=== PATIENT | male | born 1950 | race Caucasian/White ===

== ENCOUNTER → 2020-05-04 | Outpatient (CLI) | payer MEDICARE, OTHER ==
[~2020-05-04] MED LIST: ALBU90OI6 INH; ASPI325 PO; ASPI81CH PO; ATOR10 PO; ATOR80 PO; AZIT250 PO; CHLCLI PO; CLOP75 PO; CODGUAEL PO; FINA5 PO; IBUP600 PO; LISI5 PO; METO25ER PO; NITR.4SL SL
[2020-05-04 12:48] LABS: Source, Urine Clean Catch
[2020-05-04 18:45] LABS: Appearance, Urine Hazy (Clear); Bilirubin, Urine Neg (Neg); Blood, Urine 4+ (Neg); Color, Urine Yellow (P-Yellow); Glucose Qualitative, Urine Neg (Neg); Ketones, Urine Neg (Neg); Leukocyte Esterase, Urine 1+ (Neg); Nitrite, Urine Neg (Neg); Protein, Urine 1+ (Neg); Specific Gravity, Urine 1.015 (1.003-1.022); Urobilinogen, Urine NORM (Normal)
[2020-05-04 19:05] LABS: Bacteria Rare /hpf; Squamous Epithelial Cells Not Seen /hpf (Few)
== END | disposition home or self-care (01) ==
LOC: LAB 11:50 → LAB SHORT 11:50 → LAB FUT 05-03 09:20 → EDSTATUS 05-03 09:20
PROVIDERS: Urology
DX: D49.4 Neoplasm of unspecified behavior of bladder (principal); R31.0 Gross hematuria
CPT/HCPCS: 81001; 87086

== ENCOUNTER → 2020-08-21 | Outpatient (CLI) | payer MEDICARE, OTHER ==
[~2020-08-21] MED LIST changes: +Lisinopril2.5 MG PO; +METO50 PO; +Plavix75 MG PO
[2020-08-23 16:06] LABS: CORONAVIRUS (COVID19) CSH-NRL Negative (Negative)
== END | disposition home or self-care (01) ==
LOC: LAB SHORT 08:00 → LAB 08:00
PROVIDERS: Nurse Practitioner Family
DX: Z01.812 Encounter for preprocedural laboratory examination (principal); Z20.822 Contact with and (suspected) exposure to COVID-19
CPT/HCPCS: U0003

== ENCOUNTER → 2020-08-30 | Outpatient (CLI) | payer MEDICARE, OTHER ==
[2020-08-31 16:27] LABS: CORONAVIRUS (COVID19) CSH-NRL Negative (Negative)
== END ==
LOC: LAB SHORT 09:56 → PLD 09:56
PROVIDERS: Nurse Practitioner Family
DX: Z01.812 Encounter for preprocedural laboratory examination (principal); Z01.89 Encounter for other specified special examinations; Z20.822 Contact with and (suspected) exposure to COVID-19
CPT/HCPCS: U0003

== ENCOUNTER 2020-09-05 09:31 | Day surgery (SDC) | payer MEDICARE, OTHER ==
[~2020-09-05] VITALS: Ht 172.7 cm; Wt 85.1 kg
--- NOTE | 2020-09-05 11:55 | NUR ---
09/05/20 1155 Anastasiya Oneill PT UPDATED ON DELAY FOR SECOND TIME. PT CALM AND KIND, EXPRESSING UNDERSTANDING. RESTING COMFORTABLY IN BED, PLAYING ON PHONE. CALL LIGHT WITHIN REACH. DENIES NEEDS AT THIS TIME.
== END 2020-09-05 14:06 | disposition home or self-care (01) ==
LOC: ORSCSDS 09:31
PROVIDERS: Internal Medicine Gastroenterology
PROC: 0DBM8ZX Excision of Descending Colon, Via Natural or Artificial Opening Endoscopic, Diagnostic (ICD-10-PCS; principal; 2020-09-05 11:00)
PROC: 0DBE8ZX Excision of Large Intestine, Via Natural or Artificial Opening Endoscopic, Diagnostic (ICD-10-PCS; principal; 2020-09-05 11:00)
PROC: 0DB98ZX Excision of Duodenum, Via Natural or Artificial Opening Endoscopic, Diagnostic (ICD-10-PCS; principal; 2020-09-05 11:00)
DX: R19.7 Diarrhea, unspecified (principal); Z86.010 Personal history of colon polyps; D12.4 Benign neoplasm of descending colon; K52.832 Lymphocytic colitis; K64.8 Other hemorrhoids; Z87.891 Personal history of nicotine dependence; I10 Essential (primary) hypertension; N18.9 Chronic kidney disease, unspecified; I25.10 Atherosclerotic heart disease of native coronary artery without angina pectoris; Z79.899 Other long term (current) drug therapy
CPT/HCPCS: 88305; J2704; J7120

== ENCOUNTER 2020-09-08 13:39 | Emergency (ER) | payer MEDICARE, OTHER ==
[~2020-09-08] VITALS: Ht 172.7 cm; Wt 83.9 kg
[2020-09-08 14:09] LABS: BASOPHILS ABSOLUTE AUTO 0.04 K/mm3 (0.00-0.23); BASOPHILS PERCENT AUTO 1 % (0-2); EOSINOPHILS ABSOLUTE AUTO 0.18 K/mm3 (0.00-0.68); EOSINOPHILS PERCENT AUTO 2 % (0-6); Hematocrit 45.8 % (37.0-53.0); Hemoglobin 15.9 g/dL (13.5-17.5); IMMATURE GRAN ABSOLUTE AUTO 0.07 K/mm3 (0.00-0.10); IMMATURE GRAN PERCENT AUTO 1 % (0-1); LYMPHOCYTES ABSOLUTE AUTO 1.14 K/mm3 (0.84-5.20); LYMPHOCYTES PERCENT AUTO 15 % (21-46); MONOCYTES ABSOLUTE AUTO 0.68 K/mm3 (0.16-1.47); MONOCYTES PERCENT AUTO 9 % (4-13); Mean Corpuscular HGB 33.2 pg (26.0-34.0); Mean Corpuscular HGB Conc 34.7 g/dL (31.5-36.5); Mean Corpuscular Volume 96 fL (80-100); Mean Platelet Volume 9.8 fL (9.1-12.4); NEUTROPHILS PERCENT AUTO 72 % (41-73); Platelet Count 148 K/mm3 (150-400); RDW Coefficient Variation 12.4 % (11.7-14.2); RDW Standard Deviation 43.9 fL (35.1-46.3); Red Blood Cell Count 4.79 M/mm3 (4.30-5.90); White Blood Cell Count 7.51 K/mm3 (4.00-11.30)
[2020-09-08 14:25] LABS: International Normalized Ratio 0.96; Prothrombin Time Results 10.3 Sec (9.7-11.5)
[2020-09-08 14:27] LABS: Source, Urine Clean Catch
[2020-09-08 14:27] LABS: Alanine Aminotransfer (ALT/SGP 43 U/L (12-78); Albumin, Blood 3.6 g/dL (3.4-5.0); Albumin/Globulin Ratio 1.1 (0.8-1.8); Alk Phos 87 U/L (50-136); Anion Gap 7 mmol/L (6-16); Aspartate Aminotrans (AST/SGOT 24 U/L (12-37); Bilirubin, Total 0.6 mg/dL (0.1-1.0); Blood Urea Nitrogen 10 mg/dL (8-24); Bun/Creatinine Ratio 9.6 (12.0-20.0); CO2, Blood 23 mmol/L (21-32); Calcium, Blood 8.9 mg/dL (8.5-10.1); Chloride, Blood 111 mmol/L (98-108); Creatinine, Blood 1.04 mg/dL (0.60-1.20); Globulin, Blood 3.4 g/dL (2.2-4.0); Glomerular Filtration Rate >60 (60-); Glucose, Blood 119 mg/dL (70-99); Potassium, Blood 3.9 mmol/L (3.5-5.5); Sodium, Blood 141 mmol/L (136-145)
[2020-09-08 14:35] LABS: Appearance, Urine Bloody (Clear); Bilirubin, Urine Neg (Neg); Blood, Urine 4+ (Neg); Color, Urine Red (P-Yellow); Glucose Qualitative, Urine Neg (Neg); Ketones, Urine 1+ (Neg); Leukocyte Esterase, Urine Neg (Neg); Nitrite, Urine Neg (Neg); Protein, Urine 4+ (Neg); Specific Gravity, Urine 1.015 (1.003-1.022); Urobilinogen, Urine NORM (Normal)
[2020-09-08 14:58] LABS: Red Blood Cells, Urine TNTC /hpf (0-2); White Blood Cells, Urine 0-2 /hpf (0-5)
[2020-09-08 15:00] LABS: Bacteria Few /hpf; Squamous Epithelial Cells Not Seen /hpf (Few)
== END 2020-09-08 15:12 | disposition home or self-care (01) ==
LOC: ER 13:39
PROVIDERS: Physician Assistant
DX: R31.9 Hematuria, unspecified (principal); I10 Essential (primary) hypertension; E78.5 Hyperlipidemia, unspecified; I25.2 Old myocardial infarction; Z87.891 Personal history of nicotine dependence; Z88.8 Allergy status to other drugs, medicaments and biological substances; Z79.899 Other long term (current) drug therapy; Z79.02 Long term (current) use of antithrombotics/antiplatelets; N39.0 Urinary tract infection, site not specified
CPT/HCPCS: 36415; 80053; 81001; 81015; 85025; 85610; 87086; 99283

== ENCOUNTER 2021-01-01 10:29 | Emergency (ER) | payer MEDICARE, OTHER ==
[~2021-01-01] VITALS: Ht 172.7 cm; Wt 70.8 kg
[2021-01-01 11:22] LABS: Hematocrit 25.7 % (37.0-53.0); Hemoglobin 8.9 g/dL (13.5-17.5); Mean Corpuscular HGB 34.1 pg (26.0-34.0); Mean Corpuscular HGB Conc 34.6 g/dL (31.5-36.5); Mean Corpuscular Volume 99 fL (80-100); Mean Platelet Volume 9.5 fL (9.1-12.4); Platelet Count 133 K/mm3 (150-400); RDW Coefficient Variation 15.9 % (11.7-14.2); RDW Standard Deviation 56.3 fL (35.1-46.3); Red Blood Cell Count 2.61 M/mm3 (4.30-5.90); White Blood Cell Count 7.67 K/mm3 (4.00-11.30)
[2021-01-01 11:34] LABS: Albumin, Blood 3.7 g/dL (3.4-5.0); Albumin/Globulin Ratio 1.4 (0.8-1.8); Bilirubin, Total 1.2 mg/dL (0.1-1.0); Bun/Creatinine Ratio 18.5 (12.0-20.0); Calcium, Blood 8.9 mg/dL (8.5-10.1); Creatinine, Blood 1.78 mg/dL (0.60-1.20); Globulin, Blood 2.7 g/dL (2.2-4.0); Potassium, Blood 4.8 mmol/L (3.5-5.5); Total Protein, Blood 6.4 g/dL (6.4-8.2)
[2021-01-01 11:54] LABS: BAND PERCENT MAN 1 % (0-8); BASOPHILS PERCENT MAN 0 % (0-2); EOSINOPHILS PERCENT MAN 0 % (0-6); LYMPHOCYTES ABSOLUTE MAN 0.69 K/mm3 (0.84-5.20); LYMPHOCYTES PERCENT MAN 9 % (21-46); METAMYELOCYTE ABSOLUTE MAN 0.07 K/mm3 (0.00-0.00); METAMYELOCYTE PERCENT MAN 1 % (0-0); MONOCYTES PERCENT MAN 0 % (4-13); MYELOCYTE ABSOLUTE MAN 0.07 K/mm3 (0.00-0.00); MYELOCYTE PERCENT MAN 1 % (0-0); NEUTROPHILS ABSOLUTE MAN 6.82 K/mm3 (1.96-9.15); SEG NEUTROPHILS PERCENT MAN 88 % (41-73); TOTAL CELLS COUNTED 100
== END 2021-01-01 12:45 | disposition home or self-care (01) ==
LOC: ER 10:29
PROVIDERS: Emergency Medicine
DX: D64.9 Anemia, unspecified (principal); E87.1 Hypo-osmolality and hyponatremia; I10 Essential (primary) hypertension; E78.5 Hyperlipidemia, unspecified; Z88.8 Allergy status to other drugs, medicaments and biological substances; Z79.02 Long term (current) use of antithrombotics/antiplatelets
CPT/HCPCS: 36415; 71046; 80053; 85025; 93005; 93010; 99284-25

== ENCOUNTER 2021-01-15 11:04 | Emergency (ER) | payer MEDICARE, OTHER ==
[~2021-01-15] VITALS: Ht 172.7 cm; Wt 69.0 kg
[2021-01-15] MEDS ORDERED: METO10 PO (11:16)
[2021-01-15] MEDS ORDERED: Lisinopril2.5 MG PO (11:16)
[2021-01-15 11:28] LABS: BASOPHILS ABSOLUTE AUTO 0.04 K/mm3 (0.00-0.23); BASOPHILS PERCENT AUTO 0 % (0-2); EOSINOPHILS PERCENT AUTO 0 % (0-6); Hematocrit 26.7 % (37.0-53.0); Hemoglobin 8.9 g/dL (13.5-17.5); IMMATURE GRAN ABSOLUTE AUTO 0.63 K/mm3 (0.00-0.10); IMMATURE GRAN PERCENT AUTO 5 % (0-1); LYMPHOCYTES ABSOLUTE AUTO 0.76 K/mm3 (0.84-5.20); LYMPHOCYTES PERCENT AUTO 6 % (21-46); MONOCYTES ABSOLUTE AUTO 0.95 K/mm3 (0.16-1.47); MONOCYTES PERCENT AUTO 8 % (4-13); Mean Corpuscular HGB 33.7 pg (26.0-34.0); Mean Corpuscular HGB Conc 33.3 g/dL (31.5-36.5); Mean Corpuscular Volume 101 fL (80-100); Mean Platelet Volume 9.6 fL (9.1-12.4); NEUTROPHILS ABSOLUTE AUTO 9.62 K/mm3 (1.96-9.15); NEUTROPHILS PERCENT AUTO 80 % (41-73); Platelet Count 269 K/mm3 (150-400); RDW Coefficient Variation 17.9 % (11.7-14.2); RDW Standard Deviation 65.1 fL (35.1-46.3); Red Blood Cell Count 2.64 M/mm3 (4.30-5.90)
[2021-01-15 12:09] LABS: Albumin, Blood 3.3 g/dL (3.4-5.0); Bilirubin, Total 0.7 mg/dL (0.1-1.0); Bun/Creatinine Ratio 11.3 (12.0-20.0); Calcium, Blood 9.2 mg/dL (8.5-10.1); Creatinine, Blood 2.39 mg/dL (0.60-1.20); Globulin, Blood 3.4 g/dL (2.2-4.0); Potassium, Blood 4.7 mmol/L (3.5-5.5); Total Protein, Blood 6.7 g/dL (6.4-8.2)
[2021-01-15] MEDS ORDERED: DOC250 PO (16:08)
[2021-01-15] MEDS ORDERED: MIRALAX17 GM PO (16:08)
== END 2021-01-15 16:35 | disposition home or self-care (01) ==
LOC: ER 11:04
PROVIDERS: Emergency Medicine
DX: K59.00 Constipation, unspecified (principal); Z88.8 Allergy status to other drugs, medicaments and biological substances; I10 Essential (primary) hypertension; E78.5 Hyperlipidemia, unspecified; I25.10 Atherosclerotic heart disease of native coronary artery without angina pectoris; K58.9 Irritable bowel syndrome, unspecified; R63.4 Abnormal weight loss; Z68.23 Body mass index [BMI] 23.0-23.9, adult; Z85.51 Personal history of malignant neoplasm of bladder; Z79.02 Long term (current) use of antithrombotics/antiplatelets; Z79.899 Other long term (current) drug therapy
CPT/HCPCS: 80053; 84484; 85025; 93005; 93010; 99285-25; A9270

== ENCOUNTER 2021-12-24 06:35 | Day surgery (SDC) | payer MEDICARE, OTHER ==
[~2021-12-24] VITALS: Ht 172.7 cm; Wt 88.0 kg
[~2021-12-24 06:35] MED LIST changes: +DOC250 PO; +METO10 PO; +MIRALAX17 GM PO
--- NOTE | 2021-12-24 10:17 | NUR ---
PT RETURNED TO RECOVERY ROOM IN [facility]. RIGHT RADIAL TR BAND SITE SOFT NON-TENDER WITH NO HEMATOMA, NO PULSATILE BLEEDING WITH WRIST BOARD IN PLACE. PT DENIES CHEST PAIN. PT DRINKING PEPSI AND CALL LIGHT IN REACH.
--- NOTE | 2021-12-24 10:50 | NUR ---
FULL REPORT PROVIDED RONDA CONNOLLY TO ASSUME CARE OF PT.
--- NOTE | 2021-12-24 12:33 | NUR ---
PT UP TO BATHROOM PER SELF, R RADIAL SITE STABLE. PT GETTING SELF DRESSED AT THIS TIME.
--- NOTE | 2021-12-24 12:48 | NUR ---
DISCHARGE REVIEWED WITH PT, VERBALIZES UNDERSTANDING OF INSTRUCTIONS. TR BAND REMOVED AND CLOTH DOT PLACED AT R RADIAL SITE. ARM BOARD ON AND PT INSTRUCTED TO LEAVE IN PLACE FOR 2 DAYS. SALINE LOCK REMOVED WITH CATHETER INTACT. PT TO PRIVATE VEHICLE PER W/C WITH ONE STAFF.
== END 2021-12-24 12:45 | disposition home or self-care (01) ==
LOC: MHTC 06:35
DX: I25.10 Atherosclerotic heart disease of native coronary artery without angina pectoris (principal); I25.2 Old myocardial infarction; I49.3 Ventricular premature depolarization; E78.5 Hyperlipidemia, unspecified; I12.9 Hypertensive chronic kidney disease with stage 1 through stage 4 chronic kidney disease, or unspecified chronic kidney disease; N18.9 Chronic kidney disease, unspecified; J44.9 Chronic obstructive pulmonary disease, unspecified; Z87.891 Personal history of nicotine dependence; Z85.51 Personal history of malignant neoplasm of bladder; Z95.5 Presence of coronary angioplasty implant and graft; Z88.8 Allergy status to other drugs, medicaments and biological substances
CPT/HCPCS: 76937; 93458; 99152; 99153; C1769; C1887; C1894; J1644; J2250; J3010; J7030; J7040; Q9967

== ENCOUNTER → 2022-06-05 | Outpatient (CLI) | payer MEDICARE, OTHER | END | disposition home or self-care (01) | LOC: LAB 13:25 → LAB SHORT 13:25 | DX: R31.0 Gross hematuria (principal) | CPT/HCPCS: 87086 ==

== ENCOUNTER → 2023-10-21 | Outpatient (CLI) | payer MEDICARE, OTHER | END | disposition home or self-care (01) | LOC: LAB SHORT 14:46 → LAB 14:46 | DX: D11.7 Benign neoplasm of other major salivary glands (principal) ==

== ENCOUNTER 2023-12-03 10:59 | Day surgery (SDC) | payer MEDICARE, OTHER ==
[~2023-12-03] VITALS: Ht 172.7 cm; Wt 83.1 kg
[~2023-12-03 10:59] MED LIST changes: +Lactated Ringer's 1,000 ML IV ONE
[2023-12-03] MEDS ORDERED: MULVITA PO (12:20)
[2023-12-03] MEDS ORDERED: TAMS.4ER PO (12:20)
[2023-12-03] MEDS ORDERED: DERMACINRX FOL1 EAC2 PO (12:21)
[2023-12-03] MEDS ORDERED: ASPIR 8181 M1 PO (12:22)
[2023-12-03] MEDS ORDERED: Lactated Ringer's 1,000 ML IV ONE ×2 (12:36→14:49)
[2023-12-03] MEDS ORDERED: propofoL 20 ML IV ONE (12:49)
[2023-12-03] MEDS ORDERED: FentaNYL Citrate 50 MCG/ML 2 ML Injection ONE ×3 (12:49→14:05)
[2023-12-03] MEDS ORDERED: Midazolam HCl 1MG / ML 2ML Vial ONE (12:50)
[2023-12-03] MEDS ORDERED: Rocuronium Bromide 10 MG/ML 5ML Injection IV ONE (12:52)
[2023-12-03] MEDS ORDERED: Sugammadex Sodium 200 MG/2ML SDV (100 MG/ML) ONE (13:22)
[2023-12-03] MEDS ORDERED: Dexamethasone Sod Phos 10 MG/ML 1ML VIAL ONE (13:22)
[2023-12-03] MEDS ORDERED: Ondansetron HCl 2 MG / ML 2ML Vial ONE (13:22)
[2023-12-03] MEDS ORDERED: propofoL 60 ML IV ONE (13:23)
[2023-12-03] MEDS ORDERED: Glycopyrrolate 0.2 MG/ML 5ML VIAL ONE (13:32)
[2023-12-03] MEDS ORDERED: Sodium Chloride 0.9% Inj 10 ML Vial INJ ONE (13:37)
[2023-12-03] MEDS ORDERED: EPINEPhrine HCl 1 MG/ML 1ML Amp XX ONE (13:37)
--- NOTE | 2023-12-03 13:47 | NUR ---
12/03/23 Maegan Bronson 0.1ML OF EPI DILUTED WITH 20ML OF NORMAL SALINE TO MAKE EPI 1:200,000 FOR INJECTION AT [facility] BY DR MAYORGA.
[2023-12-03] MEDS ORDERED: Ketorolac Tromethamine 30mg Vial ONE (14:30)
[2023-12-03 15:13] VITALS: BP 112/78
--- NOTE | 2023-12-03 16:43 | NUR ---
12/03/23 Jacobo Roberto PT'S HEART RATE WAS NOTED TO BE IRREGULAR IN SDU. PT'S RADIAL PULSE WAS PALPATED MANUALLY, AND THREE LEAD ECG WAS ATTACHED (SEE STRIP). PT DENIED CARDIAC SYMPTOMS--INCLUDING DIZZINESS, CP, NAUSEA, WEAKNESS, SOB, VISUAL DISTURBANCE, AND HEADACHE-- THROUGHOUT STAY IN SDU, AND NONE WERE OBSERVED. DR. VILLALTA WAS CONSULTED AND APPROVED D/C WITHOUT DIZZINESS. PT REPORTED TOLERABLE 2-3/10 NECK PAIN THROUGHOUT STAY IN SDU AND UPON D/C. HE EXPRESSED EAGERNESS TO RETURN HOME.
== END 2023-12-03 16:25 | disposition home or self-care (01) ==
LOC: ORSCSDS 10:59
PROVIDERS: Otolaryngology
PROC: 0CBG0ZX Excision of Right Submaxillary Gland, Open Approach, Diagnostic (ICD-10-PCS; principal; 2023-12-03 12:30)
DX: D11.0 Benign neoplasm of parotid gland (principal); I10 Essential (primary) hypertension; F17.210 Nicotine dependence, cigarettes, uncomplicated; I25.2 Old myocardial infarction; Z79.899 Other long term (current) drug therapy; Z79.82 Long term (current) use of aspirin; Z85.828 Personal history of other malignant neoplasm of skin
CPT/HCPCS: 88307; J0171; J1100; J1885; J2250; J2405; J2704; J3010; J7120

== ENCOUNTER 2024-03-23 09:41 | Day surgery (SDC) | payer MEDICARE, OTHER ==
[~2024-03-23] VITALS: Ht 172.7 cm; Wt 82.3 kg
[~2024-03-23 09:41] MED LIST changes: +ASPIR 8181 M1 PO; +Atropine Sulfate 0.1 MG/ML 10ML SYR ONE; +DERMACINRX FOL1 EAC2 PO; +Glycopyrrolate 0.2 MG/ML 1MLVIAL ONE; +Lidocaine 2% 5 ML SDV ONE; +Lidocaine HCl/Pf 1% 5 ML VIAL ONE; +MULVITA PO; +Methylene Blue 1% 100 MG/10 ML VIAL ONE; +Ondansetron HCl 2 MG / ML 2ML Vial ONE; +TAMS.4ER PO; +ePHEDrine Sulfate 50 MG/ML 1ML Injection ONE; +propofoL 50 ML IV ONE
[2024-03-23] MEDS ORDERED: Lactated Ringer's 1,000 ML IV ONE (11:39)
[2024-03-23 13:22] VITALS: BP 114/76
== END 2024-03-23 13:10 | disposition home or self-care (01) ==
LOC: ORSCSDS 09:41
PROVIDERS: Internal Medicine Gastroenterology
PROC: 0DBM8ZX Excision of Descending Colon, Via Natural or Artificial Opening Endoscopic, Diagnostic (ICD-10-PCS; principal; 2024-03-23 11:15)
DX: R19.4 Change in bowel habit (principal); K52.9 Noninfective gastroenteritis and colitis, unspecified; Z86.0101 Personal history of adenomatous and serrated colon polyps; D12.4 Benign neoplasm of descending colon; K64.4 Residual hemorrhoidal skin tags; K64.8 Other hemorrhoids; Z87.19 Personal history of other diseases of the digestive system; Z87.891 Personal history of nicotine dependence; Z79.02 Long term (current) use of antithrombotics/antiplatelets
CPT/HCPCS: 88305; J0461; J2001; J2003; J2405; J2704; J7120; Q9968

== ENCOUNTER 2024-07-14 06:21 | Day surgery (SDC) | payer OTHER ==
[~2024-07-14] VITALS: Ht 172.7 cm; Wt 83.1 kg
[~2024-07-14 06:21] MED LIST changes: -Atropine Sulfate 0.1 MG/ML 10ML SYR ONE; -Glycopyrrolate 0.2 MG/ML 1MLVIAL ONE; -Lactated Ringer's 1,000 ML IV ONE; -Lidocaine 2% 5 ML SDV ONE; -Lidocaine HCl/Pf 1% 5 ML VIAL ONE; -Methylene Blue 1% 100 MG/10 ML VIAL ONE; -Ondansetron HCl 2 MG / ML 2ML Vial ONE; -ePHEDrine Sulfate 50 MG/ML 1ML Injection ONE; -propofoL 50 ML IV ONE
[2024-07-14] MEDS ORDERED: propofoL 50 ML IV ONE (07:34)
[2024-07-14] MEDS ORDERED: Lactated Ringer's 1,000 ML IV ONE ×2 (07:34→07:54)
[2024-07-14 09:17] VITALS: BP 117/63
== END 2024-07-14 09:04 | disposition home or self-care (01) ==
LOC: ORSCSDS 06:21
PROVIDERS: Internal Medicine Gastroenterology
PROC: 0DBH8ZX Excision of Cecum, Via Natural or Artificial Opening Endoscopic, Diagnostic (ICD-10-PCS; principal; 2024-07-14 08:00)
PROC: 0DBL8ZX Excision of Transverse Colon, Via Natural or Artificial Opening Endoscopic, Diagnostic (ICD-10-PCS; principal; 2024-07-14 08:00)
DX: Z12.11 Encounter for screening for malignant neoplasm of colon (principal); Z86.0101 Personal history of adenomatous and serrated colon polyps; D12.3 Benign neoplasm of transverse colon; D12.0 Benign neoplasm of cecum; K64.4 Residual hemorrhoidal skin tags; Z87.19 Personal history of other diseases of the digestive system; I25.10 Atherosclerotic heart disease of native coronary artery without angina pectoris; J44.9 Chronic obstructive pulmonary disease, unspecified; E78.5 Hyperlipidemia, unspecified; I10 Essential (primary) hypertension; Z79.899 Other long term (current) drug therapy
CPT/HCPCS: 88305; J2704; J7120

== ENCOUNTER → 2025-04-05 | Outpatient (CLI) | payer MEDICARE, OTHER ==
[2025-04-05 09:33] LABS: Source, Urine Clean Catch
[2025-04-05 13:25] LABS: Bilirubin, Urine Neg (Neg); Color, Urine Yellow (P-Yellow); Glucose Qualitative, Urine 2+ (Neg); Ketones, Urine Neg (Neg); Leukocyte Esterase, Urine Neg (Neg); Protein, Urine 1+ (Neg); Specific Gravity, Urine 1.020 (1.003-1.022); Urobilinogen, Urine NORM (Normal)
[2025-04-05 13:37] LABS: Albumin, Blood 3.7 g/dL (3.4-5.0); Anion Gap 9 mmol/L (3-11); Blood Urea Nitrogen 24 mg/dL (8-24); CO2, Blood 27 mmol/L (21-32); Calcium, Blood 9.1 mg/dL (8.5-10.1); Chloride, Blood 105 mmol/L (98-108); Creatinine, Blood 1.37 mg/dL (0.60-1.20); Glucose, Blood 183 mg/dL (70-99); Phosphorus, Blood 2.7 mg/dL (2.5-4.9); Potassium, Blood 4.1 mmol/L (3.5-5.5); Sodium, Blood 137 mmol/L (136-145)
[2025-04-05 14:16] LABS: White Blood Cells, Urine 0-2 /hpf (0-5)
[2025-04-05 15:27] LABS: Creatinine, Urine Random 110.0 mg/dL (27.00-270.00); Protein, Urine Random 16.3 mg/dL (0.0-11.9); Protein/Creat Ratio, Ur Random 0.1
== END ==
LOC: LAB SHORT 09:29 → LAB 09:29
PROVIDERS: Hospitalist
DX: I12.9 Hypertensive chronic kidney disease with stage 1 through stage 4 chronic kidney disease, or unspecified chronic kidney disease (principal); N18.31 Chronic kidney disease, stage 3a; R31.9 Hematuria, unspecified; E11.22 Type 2 diabetes mellitus with diabetic chronic kidney disease
CPT/HCPCS: 36415; 80069; 81001; 82570; 83036; 83970; 84156